=== PATIENT | male | born 1930 | race Caucasian/White ===

== ENCOUNTER 2016-10-05 20:45 | Emergency (ER) | payer OTHER, MEDICARE ==
[~2016-10-05] VITALS: Ht 185.4 cm; Wt 79.4 kg
[~2016-10-05 20:45] MED LIST: CELEXA20 MG PO; CITALOPRAM20 MG PO; DAILY MULTIPLE1 TAB PO; FLOMAX(MONOGRA0.4 MG PO; GOOD SENSE ASPI81 M1 PO; LOPRESSOR 12.12.5 MG PO; MIRALAX17 GM PO; PROS5 PO; SMZ-TMP 800 MG-1 TAB PO; Senokot S PO; TYLENOL TAB 32325 MG PO; VANCOMYCIN 11000 MG IV; VITAB121000 PO; VITAMIN D1000 IU PO
[2016-10-05 20:50] VITALS: BP 147/82
--- NOTE | 2016-10-05 21:47 | ED UPPER/LOWER EXTREMITY COMPL ---
History of Present Illness General Chief Complaint: General Adult Stated Complaint: PUNCTURE TO L MIDDLE FINGER, WON'T STOP BLEEDI Source: patient Exam Limitations: no limitations Vital Signs & Intake/Output Vital Signs & Intake/Output Vital Signs Date Time Temp Pulse Resp B/P Pulse O2 O2 Flow FiO2 Ox Delivery Rate 10/05 2049 97.0 65 18 147/82 94 Room Air Room Air Allergies Coded Allergies: NO KNOWN ALLERGIES (07/02/15) Reconcile Medications Acetaminophen (Tylenol Tab 325 MG) 325 MG TAB 650 MG PO Q6P PRN PAIN Aspirin 81 MG CTB 1 TAB PO DAILY HEART (Reported) Cholecalciferol (Vitamin D3) 1,000 IU TAB 1 TAB PO DAILY SUPPLEMENT Citalopram Hydrobromide (Citalopram HBr) 20 MG TAB 1 TAB PO D DEPRESSION ( Reported) Citalopram Hydrobromide (Celexa) 20 MG TAB 1 TAB PO DAILY DEPRESSION ( Reported) Cyanocobalamin (Vitamin B-12) 1,000 MCG TAB 1 TAB PO DAILY OTHER (Reported) Finasteride (Propecia) 5 MG TAB 5 MG PO DAILY Prostate enlargement Metoprolol Tartrate (Lopressor) 12.5 MG TAB 1 TAB PO BID HEART Multivitamin (Daily Multiple) 1 TAB TAB 1 TAB PO D OTHER (Reported) Polyethylene Glycol 3350 (Miralax) 17 GM PWD 17 GM PO DAILY PRN CONSTIPATION [Senokot S] 2 TAB PO DAILY PRN CONSTIPATION SULFAMETHOXAZOLE/TRIMETHOPRIM (Sulfamethoxazole-Tmp Ds Tablet) 1 TAB TAB 1 TAB PO BID UTI Tamsulosin Hydrochloride (Flomax) 0.4 MG CAP 1 CAP PO DAILY Prostate enlargement Vancomycin HCl (Vancomycin 1 Gram (ER)) 1,000 MG CARMELITA 1,500 MG IV DAILY Bacteremia/Valve vegetation Patient will be on the medication for 6 Weeks until August 15. While on the medication should have weekly CBC,CMP and Vancomycin trough levels Triage Note: TRIAGE: 86 Y/O MALE PRESENTS C/O "PUNCTURE" TO THE LEFT MID DIGIT FROM A FORK YESTERDAY AFTERNOON. SMALL LACERATION NOTED TO INNER LEFT MIDDLE DIGIT AFTER A FALL FROM BED THIS MORNING UNKNOWN LAST TETANUS. REPORTS GOING TO [facility]ULAR[facility], SHOULD BE UP TO DATE. Triage Nurses Notes Reviewed? yes Onset: Abrupt Duration: better Timing: recent history Severity: mild Severity Numbers: 1 Pain/Injury Location: Left: 3rd finger. HPI: Patient is an 86-year-old male with a past medical history of dementia, multiple recurrent falls, skin cancer, hypertension, hyperlipidemia, depression, osteoarthritis who presents to emergency room with daughter in which she lives with patient in which the daughter states that yesterday while trying to open a can patient had a puncture wound to patient's left middle finger third digit distal aspect in which a minimal well-healing wound had occurred in which the daughter did dress the wound initially however today she noted a proximal skin avulsion wound to the same finger which she presents with wound evaluation. Daughter does think that patient had recently fallen however no overt injury and patient has been acting at baseline. Patient offers no complaints except for that he states that the wound continuously still bleeds. Denies any pain the daughter states that [facility] and believes that tetanus is up-to-date (SALMA DUARTE) Past History Travel History Traveled to [place] past 21 day No Medical History Any Pertinent Medical History? 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 No (SALMA DUARTE) Review of Systems Review of Systems Constitutional: Reports: no symptoms. EENTM: Reports: no symptoms. Respiratory: Reports: no symptoms. Cardiovascular: Reports: no symptoms. Gastrointestinal/Abdominal: Reports: no symptoms. Genitourinary: Reports: no symptoms. Musculoskeletal: Reports: no symptoms. Skin: Reports: see HPI. Neurological/Psychological: Reports: no symptoms. Hematologic/Endocrine: Reports: see HPI, bleeding. Immunological: Reports: no symptoms. All Other Systems: Reviewed and Negative (SALMA DUARTE) Physical Exam Physical Exam General Appearance: no apparent distress, alert, comfortable Neurologic/Tendon: normal sensation, normal motor functions, normal tendon functions, responds to pain, no evidence tendon injury, no pulse deficit Skin: normal color, warm/dry Comments: Well-developed well-nourished person in no acute distress HEENT: Normal EENT exam, Neck: Supple, no lymphadenopathy, normal range of motion without pain or tenderness Back: Nontender, no CVA tenderness. Cardiovascular: Regular rate and rhythms no murmurs rubs or gallops, normal JVP Respiratory: Chest nontender. No respiratory distress.breath sounds clear to auscultation bilaterally Abdomen: Soft, nontender nondistended, no appreciable organomegaly. Normal bowel sounds. No ascites Extremity: No edema, no calf tenderness to palpation, normal and equal pulses. Neuro: Alert, motor sensory normal, Skin: No appreciable rash on exposed skin, skin is warm and dry. Psych: Mood and affect is normal, memory and judgment is normal. Diagram Hands Front 1) Well-healing minimal 2 mm puncture wound noted no active bleeding no tenderness 2) 5 mm x 2 mm skin avulsion noted with no active bleeding 5/5 resisted range of motion noted with flexion and extension of third digit no tendon deficit nontender dermatomes intact (SALMA DUARTE) Progress Differential Diagnosis: arterial insufficiency, compartment syndrome, contusion, dislocation, DVT, fracture, gout, septic arthritis, sprain, tendon injury Plan of Care: The wounds were cleaned with chlorhexidine and bacitracin bandage was applied. Patient does not have any concerns of fracture or tendon deficit I discussed with patient for over 10-15 minutes and with daughter who felt comfortable for patient to return back to private residence and which daughter stated that she will [facility] to [facility] last tetanus in if needed patient will return to emergency room for tetanus. Daughter also states the patient is his baseline for his mentation and is not concerned of any recent fall injury. Patient was strongly advised to follow-up with primary care doctor next week for wound recheck and to observe for signs of infection and I stressed the importance of using the walker and which daughter states that he is intermittently noncompliant with Discussed patient with Dr. Lange who agrees with disposition and plan and evaluated patient (SALMA DUARTE) Departure Departure Disposition: HOME OR SELF CARE Condition: Stable Clinical Impression Primary Impression: Avulsion of skin of finger Secondary Impressions: Puncture wound of finger of left hand Referrals: ALKA MYERS,BYRON COPE (PCP/Family) Referred to [facility] as new patient No Additional Instructions: As discussed please call your primary care doctor tomorrow to make an appointment to be seen this week for a wound recheck. Begin to apply bacitracin and/or Neosporin once a day for the following 4 days and then leave area dry and clean and open. If you note signs of infection redness, pain, swelling, discharge return to emergency room immediately. Please call your primary care doctor tomorrow and if tetanus is not up-to-date return to the emergency room for tetanus shot Continue with home medications. Always use your walker for fall prevention Departure Forms: Customer Survey General Discharge Information (RENE MYERS,ASLMA) PA/MUSEUM CURATOR Co-Sign Statement Statement: ED Attending supervision documentation- [x] I saw and evaluated the patient. I have also reviewed all the pertinent lab results and diagnostic results. I agree with the findings and the plan of care as documented in the PA's/MUSEUM CURATOR's documentation. [] I have reviewed the ED Record and agree with the PA's/MUSEUM CURATOR's documentation. [] Additions or exceptions (if any) to the PAs/MUSEUM CURATOR's note and plan are summarized below: [] (NAY CONTRERAS,EDITH Ortiz)
== END 2016-10-05 22:47 ==
LOC: ERH 20:45
DX: S61.233A Puncture wound without foreign body of left middle finger without damage to nail, initial encounter (principal); W45.8XXA Other foreign body or object entering through skin, initial encounter
CPT/HCPCS: 99282